=== PATIENT | male | born 2000 | race Caucasian/White ===

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

== ENCOUNTER 2021-04-02 16:48 | Emergency (ER) | payer OTHER ==
[~2021-04-02] VITALS: Ht 187.9 cm; Wt 79.4 kg
[~2021-04-02 16:48] MED LIST changes: +CYCLOBENZAPRINE10 MG PO; +IBU600 M1 PO
[2021-04-02 17:26] VITALS: BP 144/83
[2021-04-02] MEDS ORDERED: SEPTDS PO (18:30)
[2021-04-02] MEDS ORDERED: CEPHALEXIN500 M1 PO (18:30)
== END 2021-04-02 19:15 | disposition home or self-care (01) ==
LOC: ED 16:48
DX: L02.31 Cutaneous abscess of buttock (principal); F17.200 Nicotine dependence, unspecified, uncomplicated

== ENCOUNTER 2023-09-30 23:23 | Emergency (ER) | payer SELFPAY ==
[~2023-09-30] VITALS: Ht 187.9 cm; Wt 90.7 kg
[~2023-09-30 23:23] MED LIST changes: +CEPHALEXIN500 M1 PO; +SEPTDS PO
[2023-10-01 05:45] VITALS: BP 117/63
[2023-10-01] MEDS ORDERED: VIBRAMYCIN100 MG PO (07:00)
== END 2023-10-01 07:10 | disposition home or self-care (01) ==
LOC: ED 23:23
DX: S02.2XXA Fracture of nasal bones, initial encounter for closed fracture (principal); S20.211A Contusion of right front wall of thorax, initial encounter; I10 Essential (primary) hypertension; Z88.0 Allergy status to penicillin; Z98.890 Other specified postprocedural states; W17.89XA Other fall from one level to another, initial encounter; Y93.89 Activity, other specified; Y92.89 Other specified places as the place of occurrence of the external cause; Y99.8 Other external cause status

== ENCOUNTER 2023-11-02 16:32 | Emergency (ER) | payer SELFPAY ==
[~2023-11-02] VITALS: Ht 187.9 cm; Wt 90.7 kg
[~2023-11-02 16:32] MED LIST changes: +VIBRAMYCIN100 MG PO
[2023-11-02 16:49] VITALS: BP 150/80
[2023-11-02 17:26] LABS: BILIRUBIN Negative (Negative); BLOOD Negative (Negative); CLARITY Clear (Clear); COLOR Yellow (Yellow); GLUCOSE Negative (Negative); KETONE Trace (Negative); LEUKO ESTERASE Negative (Negative); NITRITE Negative (Negative); SPECIFIC GRAVITY >= 1.030 (1.001-1.030)
[2023-11-02 18:03] LABS: BACTERIA 1+; WBC 0-2 wbc/hpf (0-5)
== END 2023-11-02 18:01 | disposition home or self-care (01) ==
LOC: ED 16:32
PROVIDERS: Nurse Practitioner
DX: Z20.2 Contact with and (suspected) exposure to infections with a predominantly sexual mode of transmission (principal); I10 Essential (primary) hypertension; Z88.0 Allergy status to penicillin; Z98.890 Other specified postprocedural states

== ENCOUNTER 2025-04-15 15:53 | Emergency (ER) | payer SELFPAY ==
[~2025-04-15] VITALS: Ht 187.9 cm; Wt 90.7 kg
[2025-04-15 16:03] VITALS: BP 132/78
[2025-04-15] MEDS ORDERED: CIPROFLOX-DEXA7.5 ML OT (17:37)
== END 2025-04-15 17:44 | disposition home or self-care (01) ==
LOC: ED 15:53
DX: H60.92 Unspecified otitis externa, left ear (principal); Z88.0 Allergy status to penicillin